=== PATIENT | male | born 1985 | race Caucasian/White ===

== ENCOUNTER 2018-09-11 11:29 | Emergency (ER) | payer SELFPAY ==
[~2018-09-11] VITALS: Ht 172.7 cm; Wt 72.1 kg
[~2018-09-11 11:29] MED LIST: OXYC-302 PO
[2018-09-11] MEDS ORDERED: LORazepam 1MG TABLET PO ONE (12:00)
--- NOTE | 2018-09-11 12:05 | NUR ---
PT REPORTS EXCESSIVE ETOH USE, LAST DRINK APPROX 0200 TODAY. C/O TREMORS THAT PERSIST UNTIL PT IS DRINKING. ALSO C/O CHEST PAIN X 7 YEARS. PT STATES HE WANTS HELP WITH ETOH USE. FAMILY AT [facility]. CP MONITORS IN PLACE, CALL LIGHT IN REACH.
[2018-09-11] MEDS ORDERED: LORazepam 1MG TABLET ONE (12:09)
[2018-09-11 12:26] LABS: ALANINE AMINOTRANSFERASE 32 U/L (12-78); ALBUMIN 3.8 g/dL (3.4-5.0); ANION GAP 9 mmol/L (5-15); BASOPHILS # (AUTO) 0.03 x10^3/uL (0-0.1); BASOPHILS % (AUTO) 1 % (0-1); CALCIUM 9.1 mg/dL (8.5-10.1); CHLORIDE 109 mmol/L (98-107); CREATININE 1.03 mg/dL (0.7-1.3); EOSINOPHILS # (AUTO) 0.07 x10^3/uL (0-0.4); EOSINOPHILS % (AUTO) 1 % (1-7); LYMPHOCYTES # (AUTO) 1.77 x10^3/uL (1-3.4); LYMPHOCYTES % (AUTO) 29 % (22-44); MD NO; MEAN CORPUSCULAR HGB CONC 33.4 g/dL (33.2-36.2); MEAN CORPUSCULAR VOLUME 89.8 fL (81-97); MEAN PLATELET VOLUME 8.1 fL (7.4-10.4); MONOCYTES # (AUTO) 0.55 x10^3/uL (0.2-0.8); MONOCYTES % (AUTO) 9 % (2-9); NEUTROPHILS # (AUTO) 3.81 x10^3/uL (1.8-6.8); NEUTROPHILS % (AUTO) 61 % (42-75); PLATELET COUNT 365 x10^3/uL (130-400); RED BLOOD COUNT 5.48 x10^6/uL (4.38-5.82); RED CELL DISTRIBUTION WIDTH 12.7 % (9.4-14.8)
[2018-09-11 12:29] LABS: ALKALINE PHOSPHATASE 76 U/L (45-117); BILIRUBIN,TOTAL 0.4 mg/dL (0.2-1.0); TOTAL PROTEIN 7.9 g/dL (6.4-8.2)
[2018-09-11 13:09] VITALS: BP 130/82
--- NOTE | 2018-09-11 13:10 | NUR ---
PT STATES HE FEELS BETTER AFTER MEDS GIVEN. APPEARS TO BE LESS TRWEMULOUS. VSS.
--- NOTE | 2018-09-11 13:29 | NUR ---
LUNCH RN: PT RESTING COMFORTABELY AND NADN. AWAITING MD TO DC AT THIS TIME.
--- NOTE | 2018-09-11 13:49 | NUR ---
PT HANDOFF REPORT TO TONI ONEIL.
== END 2018-09-11 13:56 | disposition home or self-care (01) ==
LOC: ED 12:10
DX: K29.20 Alcoholic gastritis without bleeding (principal); F41.9 Anxiety disorder, unspecified; F10.10 Alcohol abuse, uncomplicated
CPT/HCPCS: 36415; 80053; 83690; 85025; 93005; 99284